=== PATIENT | female | born 1985 | race Two or more races ===

== ENCOUNTER → 2024-10-05 | Emergency (ER) | payer OTHER ==
[~2024-10-05] VITALS: Ht 157.5 cm; Wt 63.5 kg
[~2024-10-05] MED LIST: ACETAMINOPHEN 500 MG GEL..CAP PO ONE; DEXAMETHASONE SODIUM PHOSPHATE 4 MG/ML VIAL IM ONE; GUAIFENESIN/DEXTROMETHORPHAN 100MG/10ML BLIST.PACK PO ONE; IPRAT-ALBUT 0.5-3 ML IH; KETOROLAC TROMETHAMINE 60 MG VIAL IM ONE; OSEL75CA PO; OSELTAMIVIR PHOSPHATE 75 MG CAPSULE PO ONE; SINGULAIR4 M1 PO; TUSNEL LIQUID178 ML PO; ZYRTEC10 M3 PO
== END | disposition home or self-care (01) ==
LOC: ER 20:13
DX: J10.1 Influenza due to other identified influenza virus with other respiratory manifestations (principal)